=== PATIENT | male | born 1940 | race Caucasian/White ===

== ENCOUNTER 2018-06-18 11:15 | Inpatient (IN) | payer OTHER ==
[~2018-06-18] VITALS: Ht 175.3 cm; Wt 65.7 kg
[2018-06-18 11:15] VITALS: BP 130/88
--- NOTE | 2018-06-18 11:35 | EKG ---
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: NADIA : 1940 Requested By: Jeramie Gutierrez Order Number: [id number] MD: Arun Gerber Measurements Intervals Turner Rate: 61 P: 4 [place]: 200 QRS: -33 QRSD: 82 T: 20 QT: 390 QTc: 393 Interpretive Statements Sinus rhythm Probable left atrial enlargement Left ventricular hypertrophy Inferior infarct, old Anterior infarct, old No previous ECG available for comparison Electronically Signed On 06-18-2018 11:35:33 CDT by Arun Gerber [email or web address] ��������������������������������������������� <ELECTRONICALLY SIGNED> ���������������������������������������� By: Arun Gerber MD ��������������������������������������������� 06/18/18 1135 1131 1131 Arun Gerber MD /EPI
[2018-06-18] MEDS ORDERED: ASPIR 8181 MG PO (12:00)
[2018-06-18] MEDS ORDERED: CRESTOR40 MG PO (12:01)
[2018-06-18] MEDS ORDERED: SYNTHROID100 MC1 PO (12:01)
[2018-06-18] MEDS ORDERED: FLOMAX0.4 MG PO (12:02)
[2018-06-18] MEDS ORDERED: KAPSPARGO SPRIN25 MG PO (12:02)
[2018-06-18] MEDS ORDERED: COZAAR 25 MG TA25 M1 PO (12:02)
[2018-06-18] MEDS ORDERED: ANDRODERM1 EAC2 TOP (12:03)
[2018-06-18] MEDS ORDERED: VITAMIN D3400 UNIT PO (12:03)
[2018-06-18 12:13] LABS: BASOPHILS 2.2 % (0.0-2.0); EOSINOPHILS 4.5 % (0.0-3.0); HEMATOCRIT 43.9 % (42.0-52.0); HEMOGLOBIN 15.2 gm/dL (14.0-18.0); LYMPHOCYTES 21.4 % (24.0-44.0); MCH 31.7 pg (26.0-34.0); MCHC 34.6 g/dL (28.0-37.0); MCV 91.6 fL (80.0-100.0); PLATELET COUNT 125 thou/uL (150-400); POLYS 60.9 % (36.0-66.0); RDW 13.2 % (10.5-14.5); WBC 3.3 thou/uL (4.0-11.0)
[2018-06-18 12:18] LABS: APTT 26.5 Seconds (24.5-32.8); INR 1.1; PROTIME 11.2 Seconds (9.3-11.4)
[2018-06-18 12:21] LABS: ANION GAP 10 mmol/L (7-16); BUN 17 mg/dL (7-18); CALCIUM 9.5 mg/dL (8.5-10.1); CHLORIDE 104 mmol/L (98-107); CO2 29 mmol/L (21-32); GLUCOSE 119 mg/dL (74-106); POTASSIUM 3.7 mmol/L (3.5-5.1); SODIUM 143 mmol/L (136-145)
[2018-06-18 12:31] LABS: ALBUMIN 3.9 g/dL (3.4-5.0); SGOT 22 U/L (15-37); SGPT 22 U/L (30-65); TOTAL BILIRUBIN 1.6 mg/dL (<0.1-1.0); TOTAL PROTEIN 7.1 g/dL (6.4-8.2); TROPONIN-I <0.06 ng/mL (<0.06)
[2018-06-18 12:47] VITALS: BP 173/102
[2018-06-18 12:54] LABS: CHOLESTEROL 146 mg/dL (<200); HDL CHOLESTEROL 54 mg/dL (>40); LDL CHOLESTEROL 78 mg/dL (<100); TC:HDL 2.7 Ratio (Not establshd); TRIGLYCERIDE 74 mg/dL (<150); VLDL 15 mg/dL (<40)
[2018-06-18 14:01] VITALS: BP 193/82
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
[2018-06-18 15:10] VITALS: BP 172/86
[2018-06-18 17:15] VITALS: BP 153/73
[2018-06-18 19:32] LABS: TSH 0.443 uIU/mL (0.358-3.740)
[2018-06-18 19:44] VITALS: BP 145/84
--- NOTE | 2018-06-19 03:58 | NUR ---
patient aox4 makes needs known. patient is up at [place]. patient requested sleeping pill prn ambien given. patient denied pain or discomfort. no face drooping or numbness this shift. patient in bed asleep at this time breathing regular and unlaboured.
[2018-06-19 04:06] VITALS: BP 134/91
[2018-06-19 09:09] VITALS: BP 158/100
--- NOTE | 2018-06-19 10:00 | NUR ---
ORDERS RECEIVED FOR EVAL AND TREAT. OBSERVED Pt AMBULATING FROM THE BATHROOM WITHOUT DIFFICULTY. PER NURSING THE Pt IS UP AD LINDA. SPOKE WITH Pt WHO STATES HE IS HAVING NO DIFFICULTY WITH STRENGTH OR MOBILITY AND IS HOPING TO GO HOME TODAY. Pt IS DECLINING A FORMAL P.T. EVAL BUT APPEARS SAFE FOR HOME
[2018-06-19] MEDS ORDERED: NORVASC10 MG PO (10:17)
--- NOTE | 2018-06-19 10:30 | 2DMMODE ---
[facility] [place] [address] 2 D/M-MODE ECHOCARDIOGRAM Name: DARYA BENÍTEZ Room #: 464-P ADM IN M.R.#: [id number] ������������� Admission: 06/18/18 ������������� Attend Phys: Jil Dowd Discharge: ��� ������������� ��� Date of : 44 Date of Service: 06/19/18 1030 �� Report #: [id number] �������� ��������������������������������������������[id number] THIS REPORT FOR: //name// APPROVED REPORT Study performed: 06/19/2018 08:34:38 EXAM: Comprehensive 2D, Doppler, and color-flow Echocardiogram Patient Location: Bedside Room #: 464 Status: routine BSA: 1.80 HR: 58 bpm BP: 134/91 mmHg Rhythm: NSR Other Information Study Quality: Good Indications CVA/TIA Hypertension/HDD Echo Enhancing Agent Indication: Rule out Shunt Agent(s) / Amount(s) Used: Agitated Saline 6 cc 2D Dimensions RVDd: 30.04 mm IVSd: 15.44 (7-11mm) LVOT Diam: 24.11 (18-24mm) LVDd: 43.72 mm PWd: 14.95 (7-11mm) Ascending Ao: 37.37 (22-36mm) LVDs: 31.83 (25-40mm) Aortic Root: 40.94 mm IVC: 16.00 mm Volumes Left Atrial Volume (Systole) Single Plane 4CH: 44.11 mL Single Plane 2CH: 62.46 mL LA ESV Index: 34.00 mL/m2 Aortic Valve AoV Peak Kit.: 1.13 m/s AO Peak Gr.: 5.13 mmHg LVOT Max P.79 mmHg LVOT Max V: 0.83 m/s BRIANNA Vmax: 3.36 cm2 [facility] [address] [place] [address] 2 D/M-MODE ECHOCARDIOGRAM Name: JACKELINNIRMALDARYA Room #: 464-P [facility] IN M.R.#: [id number] ������������� Admission: 06/18/18 ������������� Attend Phys: Jil Dowd Discharge: ��� ������������� ��� Date of : 44 Date of Service: 06/19/18 1030 �� Report #: [id number] �������� ��������������������������������������������[id number] AI Vmax: 4.32 m/s AI [place]: 1.97 m/s2 AI PHT: 635.49 ms Mitral Valve E/A Ratio: 0.5 MV Decel. Time: 226.52 ms MV E Max Kit.: 0.51 m/s MV A Kit.: 1.07 m/s MV PHT: 65.69 ms IVRT: 166.09 ms Pulmonary Valve PV Peak Kit.: 0.72 m/s PV Peak Gr.: 2.05 mmHg Pulmonary Vein P Vein S: 0.49 m/s P Vein A: 0.29 m/s P Vein D: 0.27 m/s P Vein A Dur.: 124.6 msec P Vein S/D Ratio: 1.81 Tricuspid Valve TR Peak Kit.: 2.35 m/s RAP Estimate: 5.00 mmHg TR Peak Gr.: 22.02 mmHg PA Pressure: 27.00 mmHg Left Ventricle The left ventricle is normal size. Moderate concentric left ventricular hypertrophy. The left ventricular systolic function is normal. The left ventricular ejection fraction is within the normal range. LVEF is 60-65%. Mild diastolic dysfunction is present (impaired relaxation pattern). Right Ventricle The right ventricle is normal size. The right ventricular systolic function is normal. Atria Left atrium is at the upper limits of normal. No shunting by contrast bubble injection. Right atrium is at the upper limits of normal. Aortic Valve The aortic valve is normal in structure. Mild aortic regurgitation. There is no aortic valvular stenosis. Mitral Valve [facility] [address] [place] [address] 2 D/M-MODE ECHOCARDIOGRAM Name: DARYA BENÍTEZ Room #: 464-P [facility] IN ..#: [id number] ������������� Admission: 06/18/18 ������������� Attend Phys: Jil Dowd Discharge: ��� ������������� ��� Date of : 44 Date of Service: 06/19/18 1030 �� Report #: [id number] �������� ��������������������������������������������[id number] Mitral valve leaflets are mildly thickened. Mild to moderate mitral regurgitation. No evidence of mitral valve stenosis. Tricuspid Valve The tricuspid valve is normal in structure. Mild tricuspid regurgitation. PAP is estimated at 27 mmHg. Pulmonic Valve The pulmonary valve is normal in structure. Trace pulmonic regurgitation. Great Vessels Aortic root is mildly dilated at 4.1 cm. The ascending aorta is normal in size. IVC is normal in size and collapses >50% with inspiration. Pericardium There is no pericardial effusion. <Conclusion> The left ventricle is normal size. Moderate concentric left ventricular hypertrophy. The left ventricular systolic function is normal. Mild diastolic dysfunction is present (impaired relaxation pattern). The right ventricle is normal size. Left atrium is at the upper limits of normal. No shunting by contrast bubble injection. Mild aortic regurgitation. Mild to moderate mitral regurgitation. Mild tricuspid regurgitation. PAP is estimated at 27 mmHg. ��������������������������������������������� <ELECTRONICALLY SIGNED> ���������������������������������������� By: Arun Gerber MD ��������������������������������������������� 06/19/18 1030 1030 1030 Arun Gerber MD /INF
[2018-06-19 14:16] VITALS: BP 158/100
--- NOTE | 2018-06-19 14:20 | NUR ---
QUIET UNEVENTFUL DAY. DENIES NUMBNESS TO FACE. UP INDEPENDENTLY AND TOLERATING WELL. DENIES PAIN. STILL WITH HIGH BLOOD PRESSURE. STARTED ON AMLODIPINE. PRESCRITION GIVEN FOR AMLODIPINE. DISMISSED IN STABLE CONDITION.
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
== END 2018-06-19 15:01 | disposition home or self-care (01) | DRG 66 ==
LOC: ER 11:15 → 4W 12:38 → EROBS 12:38 → 4W 14:05
PROVIDERS: Emergency Medicine; Psychiatry & Neurology Neuromuscular Medicine; ADMIT Hospitalist
DX: I63.9 Cerebral infarction, unspecified (principal); I16.0 Hypertensive urgency; R29.810 Facial weakness; I10 Essential (primary) hypertension; E78.5 Hyperlipidemia, unspecified; J32.2 Chronic ethmoidal sinusitis; D33.3 Benign neoplasm of cranial nerves; Z86.73 Personal history of transient ischemic attack (TIA), and cerebral infarction without residual deficits; Z79.82 Long term (current) use of aspirin; Z79.899 Other long term (current) drug therapy; Z88.8 Allergy status to other drugs, medicaments and biological substances
CPT/HCPCS: 10045